=== PATIENT | female | born 1970 ===

== ENCOUNTER 2018-03-11 09:28 | Day surgery (SDC) | payer BC ==
--- NOTE | 2018-03-03 07:26 | HP ---
AMENDED REPORT NOW INCLUDES COSIGNER DESIGNATION - ESIGNED BEFORE ADJUSTMENTS PREOPERATIVE HISTORY AND PHYSICAL: DATE OF SURGERY/ADMISSION: 03/11/18 DATE OF OFFICE VISIT/ENCOUNTER: 02/17/18 ATTENDING SURGEON: Belkis Reeves MD * (DICTATED BY LARISSA SONG) PROCEDURE: Excision mass, left index finger. CHIEF COMPLAINT: Mass, left index finger. HISTORY OF PRESENT ILLNESS: This is a 48-year-old female who complains of a lump on the dorsal aspect of her left index finger that has been present for the past couple of months. She does not recall any injury. She states the lump has gotten a bit larger over time and some clear fluid drained, but then it recollected. She has recently seen her primary care doctor, who referred her to Dr. Reeves for further evaluation and treatment considerations. It does not particularly limit her ability to do anything with her hand, but it is bothersome to have a lump there and she would like to have it surgically excised. PAST MEDICAL HISTORY: Unremarkable. PAST SURGICAL HISTORY: One . CURRENT MEDICATIONS: None. ALLERGIES: No known drug allergies. FAMILY MEDICAL HISTORY: Noncontributory. SOCIAL HISTORY: The patient is employed in [employer] business. She denies tobacco use and recreational drug use. She drinks alcohol seldomly. REVIEW OF SYSTEMS: General: Negative for fevers, chills, or night sweats. No known anesthesia problems. HEENT: Negative for headache, lightheadedness, or syncopal episodes. Integumentary: Negative for abrasions, lesions, and open wounds. Cardiothoracic: Negative for hypertension, chest pain, palpitations, edema. Pulmonary: Negative for shortness of breath with exertion, chronic cough, COPD. GI: Negative for nausea, vomiting, diarrhea, constipation, GERD. : Negative for nocturia, urinary frequency, urgency, history of UTIs, and kidney problems. Musculoskeletal: Positive for current complaint. Negative for chronic or intermittent back pain or history of fractures. Neurological: Negative for paresthesias, numbness, history of seizure, stroke, or epilepsy. Endocrine: Negative for diabetes and thyroid issues. Hematologic: Negative for easy bruising, anemia, excessive bleeding, history of DVT. Infectious Disease: Negative for history of MRSA, hepatitis C, HIV. PHYSICAL EXAMINATION GENERAL: Well-developed, well-nourished 48-year-old female, in no acute distress. VITAL SIGNS: Height 5 feet 7 inches, blood pressure 108/62, pulse rate 67. HEENT: Normocephalic, atraumatic. Pupils are equal, round, and reactive to light and accommodation. Extraocular movements are intact. Throat is clear. NECK: Supple. No palpable lymph nodes. PULMONARY: Lungs are clear to auscultation bilaterally. No wheezes, rales, or rhonchi. CARDIOVASCULAR: Regular rate and rhythm. S1, S2. No murmurs, rubs, or gallops. No edema. ABDOMEN: Positive bowel sounds, soft, nontender. NEUROLOGICAL: Alert and oriented x3. Cranial nerves II through XII are intact. Sensation is intact to light touch. MUSCULOSKELETAL: On exam of her left hand, she has a small cystic mass on the dorsal aspect of the DIP joint of the index finger. It is minimally tender to palpation. She has good range of motion in the finger, but lacks a little bit of flexion. Neurovascular function is intact. SKIN: Intact. IMAGING STUDIES: X-rays: AP, lateral, and oblique of the left index finger show minimal degenerative changes at the index finger DIP joint. IMPRESSION: Left index finger mucus cyst. PLAN: The patient is scheduled to undergo an excision mass, left index finger with Dr. Reeves on 03/11/18. She will return to the office 10 days postop for followup and suture removal. A prescription for Ultracet was e-scribed to the patient's pharmacy for postoperative pain management. LARISSA SONG [id number]/[facility] #: [id number] GISSEL
[2018-03-11] MEDS ORDERED: Lidocaine 1% INJ* 10 MG/ML 30 ML SDV ONE (10:14)
[2018-03-11 11:04] VITALS: BP 102/40
--- NOTE | 2018-03-12 04:27 | OP ---
DATE OF OPERATION: 03/11/18 [facility] DATE OF : 66 SURGEON: Belkis Reeves MD LATEX SPOOLER: LARISSA Gerard ANESTHESIA: Local. PRE-OP DIAGNOSIS: Mucous cyst of the left index finger. POST-OP DIAGNOSIS: Mucous cyst of the left index finger. OPERATIVE PROCEDURE: Removal of mucous cyst of the index finger. ESTIMATED BLOOD LOSS: Zero. TOURNIQUET TIME: About 15 minutes. INDICATION FOR PROCEDURE: Rosmery is a 48-year-old female with a painful mass on the dorsal aspect of her left index finger DIP joint. She presents for removal. DESCRIPTION OF PROCEDURE: The patient was brought to the operating room, was given a digital block with 10 cc of 1% plain lidocaine. The skin of the left hand and forearm was prepped and draped in the usual sterile fashion. A Tourni- Cot was placed on the index finger, used to exsanguinate the finger and act as a tourniquet. An H-shaped incision was then made on the dorsal aspect of the DIP joint, carefully dissected the skin over the ganglion cyst. Skin was very thin and the mass was removed in its entirety including its connection to the DIP joint. An incision was made on either side of the extensor tendon to access the joint and remove the osteophytes with a rongeur. The wound was irrigated and the skin edges were reapproximated with 4-0 nylon suture. The wound was dressed in Xeroform, 4x4, Webril and Coban. The patient tolerated the procedure well, was brought to the recovery room in good condition. [id number]/[facility] #: [id number] [facility]ALKrysten
== END 2018-03-11 10:56 | disposition home or self-care (01) ==
LOC: OREAST 09:28
PROVIDERS: ATTEND Orthopaedic Surgery
DX: M85.842 Other specified disorders of bone density and structure, left hand (principal)
CPT/HCPCS: 88304